=== PATIENT | female | born 2000 | race Caucasian/White ===

== ENCOUNTER 2023-10-28 10:43 | Outpatient (CLI) | payer BC | END 2023-10-28 23:59 | disposition home or self-care (01) | LOC: RAD 10:43 | PROVIDERS: ATTEND Physician Assistant | DX: R16.0 Hepatomegaly, not elsewhere classified (principal); R74.01 Elevation of levels of liver transaminase levels; R10.9 Unspecified abdominal pain; R61 Generalized hyperhidrosis | CPT/HCPCS: 76700 ==